=== PATIENT | female | born 2000 | race Caucasian/White ===

== ENCOUNTER 2022-08-21 00:32 | Emergency (ER) | payer OTHER, SELFPAY ==
[2022-08-21] MEDS ORDERED: Lidocaine 1% PF 5 ML VIAL ONE (00:49)
[2022-08-21] MEDS ORDERED: Boostrix 0.5 ML (Tdap) VIAL (>/=7 yrs of age) ONE (01:16)
== END 2022-08-21 01:39 | disposition home or self-care (01) ==
LOC: ERS 00:32
DX: S01.25XA Open bite of nose, initial encounter (principal); Z23 Encounter for immunization; W54.0XXA Bitten by dog, initial encounter
CPT/HCPCS: 12013; 90471; 90715